=== PATIENT | male | born 1980 | race Two or more races ===

== ENCOUNTER 2016-09-10 09:16 | Emergency (ER) | payer SELFPAY ==
[2016-09-10 09:41] VITALS: BP 128/75; PULSE 78; TEMP 98.3; BMI 22.2
[2016-09-10] MEDS ORDERED: IBUPROFEN 600 MG TABLET (FP) PO ONE ×2 (10:23→10:29)
--- NOTE | 2016-09-10 10:23 | PDOC ---
History of Present Illness - General Chief Complaint: Sore Throat Stated Complaint: THROAT PAIN Time Seen by Provider: 09/10/16 10:10 History Source: Patient Exam Limitations: No Limitations - History of Present Illness Initial Comments: CHIEF COMPLAINT: 35 y/o afebrile male with no significant PMH c/o sore throat for the past 4 days. HISTORY OF PRESENT ILLNESS: The patient states it hurts to swallow. He denies f/c, n/v/d, cough, runny nose, body aches, CP, SOB, abd pain. He has been drinking tea for the symptoms. Vital signs on arrival are within normal limits. REVIEW OF SYSTEMS: GENERAL/CONSTITUTIONAL: No fever/chills. No weakness. No weight change. HEAD, EYES, EARS, NOSE AND THROAT: No change in vision. No ear pain or discharge. +sore throat CARDIOVASCULAR: No chest pain or shortness of breath. RESPIRATORY: No cough, wheezing, or hemoptysis. GASTROINTESTINAL: No abd pain, nausea, vomiting, diarrhea. GENITOURINARY: No dysuria, frequency, or change in urination. MUSCULOSKELETAL: No joint or muscle swelling or pain. No neck or back pain. SKIN: No rash or easy bruising. NEUROLOGIC: No headache, vertigo, loss of consciousness, or loss of sensation. PHYSICAL EXAM: GENERAL: The patient is awake, alert, and fully oriented, in no acute distress. he is well appearing and ambulatory. HEAD: Normal with no signs of trauma. ENT: Pupils equal, round and reactive to light, extraocular movements intact, sclera anicteric, conjunctiva clear. 1+ erythematous tonsils without exudate. Uvula midline. Tender anterior cervical lymphadenopathy. LUNGS: Clear to auscultation bilaterally. Normal excursion. No respiratory distress or use of accessory muscles. CV: RRR, S1/S2, no MRG. Cap refill < 2 sec. ABDOMEN: Soft, non-distended, non-tender even to deep palpation, no hepatomegaly or splenomegaly, no masses. EXTREMITIES: Normal range of motion, no edema. NEUROLOGICAL: Normal speech, normal gait. CN II-XII grossly intact. PSYCH: Normal mood, normal affect. SKIN: Warm, dry, normal turgor, no rashes or lesions noted. Past History - Past Medical History Allergies/Adverse Reactions: Allergies Allergy/AdvReac Type Severity Reaction Status Date / Time aspirin Allergy Severe Swelling Verified 09/10/16 09:39 Home Medications: Ambulatory Orders NK [No Known Home Medication] 09/10/16 Other medical history: DENIES - Surgical History Orthopedic Surgery: Yes (rt hand) - Immunization History Immunization Up to Date: Yes - Psycho/Social/Smoking Cessation Hx Anxiety: No Suicidal Ideation: No Smoking Status: Yes Smoking History: Current every day smoker Have you smoked in the past 12 months: Yes Number of Cigarettes Smoked Daily: 10 Information on smoking cessation initiated: No Hx Alcohol Use: No Drug/Substance Use Hx: No Substance Use Type: None *Physical Exam - Vital Signs Last Vital Signs Temp Pulse Resp BP Pulse Ox 98.3 F 78 19 128/75 98 09/10/16 09:39 09/10/16 09:39 09/10/16 09:39 09/10/16 09:39 09/10/16 09:39 Medical Decision Making - Medical Decision Making A/P: 35 y/o afebrile male with pharyngitis vs strep. Plan is as follows: 1. Rapid strep 2. PO motrin Rapid strep - positive The patient prefers Bicillin IM - tolerated injection well Suggested 600mg of Motrin every 6 hours with food for pain/fever, gargle with warm salt water, eat soft/cold foods until symptoms improve and return to the ER with any worsening or concerning symptoms. The patient verbalizes understanding of all instructions, has no further questions and is awaiting discharge. *DC/Admit/Observation/Transfer Diagnosis at time of Disposition: Strep pharyngitis - Discharge Dispostion Disposition: HOME Condition at time of disposition: Good - Patient Instructions Printed Discharge Instructions: DI for Strep Throat Additional Instructions: Discharge Instructions: -You were treated with 1.2M units of Bicillin for treatment of strep throat; no further antibiotics are necessary -Take 600mg of over the counter Motrin for pain/fever if needed every 6 hours with food -Gargle with warm salt water multiple times per day -Eat cold and soft foods until symptoms improve -Return to the ER with any worsening or concerning symptoms
[2016-09-10] MEDS ORDERED: PENICILLIN G BENZATHINE 1,200,000 UNIT/2 ML PFS IM ONE (11:16)
[2016-09-10] MEDS ORDERED: PENICILLIN G BENZATHINE 2,400,000 UNIT/4 ML PFS ONE (11:22)
== END 2016-09-10 11:37 | disposition home or self-care (01) ==
LOC: JERFT 09:16
DX: J02.0 Streptococcal pharyngitis (principal); B95.0 Streptococcus, group A, as the cause of diseases classified elsewhere; F17.210 Nicotine dependence, cigarettes, uncomplicated
CPT/HCPCS: 87070; 87430; 99281-25